=== PATIENT | female | born 2005 | race Caucasian/White ===

== ENCOUNTER 2025-05-31 19:42 | Emergency (ER) | payer OTHER ==
[2025-05-31 19:50] VITALS: BP 108/67; PULSE 71; RESP 18; TEMP 98.1; BMI 27.0
[2025-05-31] MEDS ORDERED: FLUORESCEIN NA 1 EA STRIP ONE (20:02)
[2025-05-31] MEDS ORDERED: TETRACAINE 0.5% OPHTH SOLN 2 ML BOTTLE ONE (20:02)
[2025-05-31] MEDS: FLUORESCEIN NA 1 EA STRIP OU ONE (20:03)
[2025-05-31] MEDS: TETRACAINE 0.5% OPHTH SOLN 2 ML BOTTLE OU ONE (20:03)
[2025-05-31] MEDS ORDERED: ERYTHROMYCIN 0.5% OPHTHALMIC OINTMENT 3.5 GM TUBE OS SCH (20:15)
== END 2025-05-31 20:16 | disposition home or self-care (01) ==
LOC: JERFT 19:42
DX: S05.01XA Injury of conjunctiva and corneal abrasion without foreign body, right eye, initial encounter (principal); S05.02XA Injury of conjunctiva and corneal abrasion without foreign body, left eye, initial encounter; W22.8XXA Striking against or struck by other objects, initial encounter; W25.XXXA Contact with sharp glass, initial encounter
CPT/HCPCS: 99283-25